=== PATIENT | male | born 1950 | race Caucasian/White ===

== ENCOUNTER 2016-06-27 07:40 | Day surgery (SDC) | payer OTHER ==
[2016-06-27] MEDS ORDERED: LIDOCAINE HCL 1% MPF SOL ONE (07:49)
[2016-06-27] MEDS ORDERED: PROPOFOL 500 MG/50 ML EMU IV ONE (07:49)
[2016-06-27 10:40] VITALS: BP 131/86; PULSE 49; RESP 18; TEMP 97.6; O2SAT 96
== END 2016-06-27 11:05 | disposition home or self-care (01) | DRG 951 ==
LOC: SURG 07:40
PROVIDERS: ATTEND Surgery
DX: Z12.11 Encounter for screening for malignant neoplasm of colon (principal); D12.0 Benign neoplasm of cecum; Z86.010 Personal history of colon polyps; K57.30 Diverticulosis of large intestine without perforation or abscess without bleeding; E11.9 Type 2 diabetes mellitus without complications; Z79.84 Long term (current) use of oral hypoglycemic drugs
CPT/HCPCS: 82962; 99001; J2001; J2704